=== PATIENT | female | born 1940 | race Caucasian/White ===

== ENCOUNTER 2017-08-15 13:51 | Inpatient (IN) | payer MEDICARE, OTHER ==
[2017-08-11 09:50] LABS: BASOPHILS % (AUTO) 0.6 % (0-1); EOSINOPHILS # (AUTO) 0.2 X10'3 (0-0.9); EOSINOPHILS % (AUTO) 4.7 % (0-6); HEMATOCRIT 38.1 % (35.0-45.0); LYMPHOCYTES # (AUTO) 1.2 X10'3 (1.1-4.8); LYMPHOCYTES % (AUTO) 36.9 % (21-51); MEAN CORPUSCULAR HGB CONC 34.1 % (33.0-36.5); MEAN CORPUSCULAR VOLUME 84.9 FL (78-98); MEAN PLATELET VOLUME 8.6 FL (7.4-10.4); MONOCYTES # (AUTO) 0.3 X10'3 (0-0.9); MONOCYTES % (AUTO) 9.1 % (2-12); NEUTROPHILS # (AUTO) 1.6 X10'3 (1.8-7.7); NEUTROPHILS % (AUTO) 48.7 % (42-75); PLATELET COUNT 177 X10'3 (140-440); RED BLOOD COUNT 4.49 X10'6 (4.20-5.60); RED CELL DISTRIBUTION WIDTH 14.8 % (11.5-14.5); WHITE BLOOD COUNT 3.2 X10'3 (4.5-11.0)
[2017-08-11 09:59] LABS: ALBUMIN 3.8 G/DL (3.4-5.0); ANION GAP 10 (8-16); BLOOD UREA NITROGEN 9 MG/DL (7-18); CALCIUM 8.8 MG/DL (8.5-10.1); CHLORIDE 104 MMOL/L (99-107); CREATININE 0.69 MG/DL (0.40-0.90); GLUCOSE 95 MG/DL (70-104); POTASSIUM 3.6 MMOL/L (3.5-5.1); SODIUM 140 MMOL/L (135-145); TOTAL CARBON DIOXIDE 25.6 MMOL/L (24-32); eGFR 82 ML/MIN
[2017-08-11 10:00] LABS: INR 1.9 INR; PARTIAL THROMBOPLASTIN TIME 35 SECONDS (22-32); PROTHROMBIN TIME 19.7 SECONDS (9.0-12.0)
[2017-08-15] VITALS (10 sets, daily range): BP systolic 118–156; BP diastolic 68–86
[~2017-08-15] VITALS: Ht 172.7 cm; Wt 69.3 kg
[~2017-08-15 13:51] MED LIST: ACET-2119 PO; ATOR10TA70 PO; ENOX40SY7 SUBCUT; LOSA1TAB41 PO; MONT10TA24 PO; OMEG-107 PO; PANT40TA4 PO; VERA180T PO; WARF-65 PO
[2017-08-15] MEDS ORDERED: LORazepam 0.5 MG tablet PO PRN (14:20)
[2017-08-15] MEDS ORDERED: diphenhydrAMINE 25mg capsule PO PRN (14:20)
[2017-08-15] MEDS ORDERED: normal saline 1000ml 1,000 ML IV SCH (14:20)
[2017-08-15] MEDS ORDERED: OMEG1CAP PO (14:30)
[2017-08-15 15:11] LABS: PROTHROMBIN TIME 10.6 SECONDS (9.0-12.0)
[2017-08-15] MEDS ORDERED: fentaNYL/PF 50MCG/1 ML 2ML syringe ONE (15:50)
[2017-08-15] MEDS ORDERED: LIDOcaine 1%/PF (10mg/ml) 5ml vial ONE (15:50)
[2017-08-15] MEDS ORDERED: midazolam 2 mg/2 ml injection ONE (15:50)
[2017-08-15] MEDS ORDERED: iohexol 350MG/ML 100ml bottle IV ONE (15:51)
[2017-08-15] MEDS ORDERED: ondansetron/PF 4mg/2ml inj ONE (16:20)
[2017-08-15] MEDS ORDERED: OXAZEpam 15mg capsule PO PRN (17:40)
[2017-08-15] MEDS ORDERED: HYDROcodone/acetaminophen 5mg/325mg tablet PO PRN (17:40)
[2017-08-15] MEDS ORDERED: ondansetron/PF 4mg/2ml inj IV PRN (17:40)
[2017-08-15] MEDS ORDERED: HYDROcodone/acetaminophen 10/325mg tab PO PRN (17:40)
[2017-08-15] MEDS ORDERED: proCHLORperazine 10 MG/2 ml inj IV PRN (17:40)
[2017-08-15] MEDS ORDERED: insulin regular, human inj. 100 UNITS in normal saline 100ml IV soln 100 ML IV SCH ×2 (17:50)
[2017-08-15] MEDS ORDERED: cefazolin/dext.iso 2gm/50ml 50 ML IV ONE (17:50)
[2017-08-15] MEDS ORDERED: montelukast 10mg tablet PO PRN (17:50)
[2017-08-15] MEDS ORDERED: dextrose 50%-water 50ml dispensing syringe IV PRN (17:50)
[2017-08-15] MEDS ORDERED: montelukast 10mg tablet PO SCH (17:50)
[2017-08-15] MEDS ORDERED: MESSAGE TO NURSING PO ONE ×3 (17:50)
[2017-08-15] MEDS ORDERED: pantoprazole 40mg Tablet.DR PO SCH ×2 (17:50→17:58)
[2017-08-15] MEDS: insulin Lispro (HumaLOG) vial - multi-dose SQ SCH (18:00)
[2017-08-15] MEDS ORDERED: mupirocin 2% ointment 22GM NS SCH (20:00)
[2017-08-15 20:29] LABS: HEMATOCRIT 35.6 % (35.0-45.0); HEMOGLOBIN 11.9 g/dl (12.0-16.0); MEAN CORPUSCULAR HEMOGLOBIN 28.6 PG (27.0-31.0); MEAN CORPUSCULAR HGB CONC 33.5 % (33.0-36.5); MEAN CORPUSCULAR VOLUME 85.3 FL (78-98); MEAN PLATELET VOLUME 8.7 FL (7.4-10.4); PLATELET COUNT 170 X10'3 (140-440); RED BLOOD COUNT 4.18 X10'6 (4.20-5.60); RED CELL DISTRIBUTION WIDTH 14.8 % (11.5-14.5); WHITE BLOOD COUNT 3.7 X10'3 (4.5-11.0)
[2017-08-15 20:41] LABS: ALBUMIN 3.5 G/DL (3.4-5.0); ANION GAP 9 (8-16); BLOOD UREA NITROGEN 8 MG/DL (7-18); BUN/CREATININE RATIO 12.5 (6.6-38.0); CALCIUM 8.6 MG/DL (8.5-10.1); CHLORIDE 106 MMOL/L (99-107); CREATININE 0.64 MG/DL (0.40-0.90); GLUCOSE 134 MG/DL (70-104); PARTIAL THROMBOPLASTIN TIME 27 SECONDS (22-32); POTASSIUM 3.5 MMOL/L (3.5-5.1); SODIUM 142 MMOL/L (135-145); TOTAL CARBON DIOXIDE 27.5 MMOL/L (24-32); eGFR 90 ML/MIN
[2017-08-15 20:46] LABS: HEMOGLOBIN A1C 5.9 % (4.5-6.2)
[2017-08-15] MEDS: verapamil SR 120mg (sust. release) tab PO SCH (21:26)
[2017-08-16 03:00] VITALS: BP 127/61
[2017-08-16 06:00] VITALS: BP 135/51
[2017-08-16] MEDS ORDERED: LOSARTAN PO SCH (08:00)
[2017-08-16] MEDS ORDERED: HYDROCHLOROTHIAZIDE PO SCH (08:00)
[2017-08-16] MEDS ORDERED: atorvastatin 10mg tablet PO SCH (08:00)
[2017-08-16] MEDS ORDERED: omega-3 acid ethyl esters 1GM capsule PO SCH ×2 (08:00)
[2017-08-16] MEDS ORDERED: losartan 50mg tablet PO SCH (08:00)
[2017-08-16] MEDS ORDERED: HYDROchlorothiazide 12.5mg capsule PO SCH (08:00)
[2017-08-16] MEDS ORDERED: [UNRECOGNIZED DRUG - OTHER] PO SCH (08:00)
[2017-08-16] MEDS: verapamil SR 120mg (sust. release) tab PO SCH ×2 (08:19→20:07)
[2017-08-16] MEDS: insulin Lispro (HumaLOG) vial - multi-dose SQ SCH ×2 (08:25→12:54)
[2017-08-16] MEDS ORDERED: MESSAGE TO NURSING PO ONE (10:00)
[2017-08-16 11:00] VITALS: BP 144/64
[2017-08-16 14:41] LABS: ABG BASE EXCESS 2.2 mmol/L (-2.0-3.0); ABG OXYGEN SATURATION 97.1 % (95-98); ABG PCO2 (T) 37.6 mmHg (32.0-45.0); ABG PH (T) 7.457 (7.350-7.450); ABG PO2 (T) 89.4 mmHg (83-108); FCOHb 0.1 % (0.5-1.5); FMetHb 0.1 % (0.3-1.12); FO2Hb 96.9 % (94-100); TOTAL HEMOGLOBIN 13.6 G/dl (12.0-16.0)
[2017-08-16 14:58] LABS: COLOR,URINE YELLOW (Yellow); GLUCOSE, URINE NEGATIVE (Neg); KETONES,URINE NEGATIVE (Neg); LEUKOCYTE ESTERASE ,URINE MODERATE (Neg); NITRITES, URINE NEGATIVE (Neg); OCCULT BLOOD,URINE SMALL (Neg); PH,URINE 6.5 (4.8-8.0); PROTEIN,URINE NEGATIVE (Neg); UA COLLECTION TYPE CLN CATCH MIDSTREAM; UROBILINOGEN,URINE 0.2 E.U/dL (0.2-1.0)
[2017-08-16 14:59] LABS: CLARITY,URINE Slightly Cloudy (Clear)
[2017-08-16 15:00] VITALS: BP 122/62
[2017-08-16 15:10] LABS: BACTERIA,URINE NONE SEEN /HPF (Neg); RBC,URINE 0-2 /HPF (0-2); SQUAMOUS EPITHELIAL CELL,UR MODERATE /LPF (FEW); WBC,URINE 0-4 /HPF (0-4)
[2017-08-16 17:05] LABS: ALBUMIN 3.9 G/DL (3.4-5.0); ANION GAP 9 (8-16); BLOOD UREA NITROGEN 12 MG/DL (7-18); BUN/CREATININE RATIO 18.5 (6.6-38.0); CALCIUM 8.8 MG/DL (8.5-10.1); CHLORIDE 104 MMOL/L (99-107); CREATININE 0.65 MG/DL (0.40-0.90); GLUCOSE 99 MG/DL (70-104); MAGNESIUM 2.1 MG/DL (1.5-2.4); POTASSIUM 3.9 MMOL/L (3.5-5.1); SODIUM 140 MMOL/L (135-145); TOTAL CARBON DIOXIDE 27.3 MMOL/L (24-32); eGFR 88 ML/MIN
[2017-08-16 19:00] VITALS: BP 148/65
[2017-08-16] MEDS ORDERED: ringers solution, lacted 1,000 ML IV ONE (19:15)
[2017-08-16 22:00] VITALS: BP 147/90
[2017-08-16] MEDS: mupirocin 2% ointment 22GM NS SCH (22:20)
[2017-08-17] VITALS (19 sets, daily range): BP systolic 114–164; BP diastolic 44–78
[2017-08-17 05:08] LABS: BASOPHILS % (AUTO) 0.7 % (0-1); EOSINOPHILS # (AUTO) 0.1 X10'3 (0-0.9); EOSINOPHILS % (AUTO) 3.2 % (0-6); HEMATOCRIT 37.7 % (35.0-45.0); HEMOGLOBIN 12.8 g/dl (12.0-16.0); LYMPHOCYTES # (AUTO) 1.3 X10'3 (1.1-4.8); LYMPHOCYTES % (AUTO) 28.3 % (21-51); MEAN CORPUSCULAR HGB CONC 33.9 % (33.0-36.5); MEAN CORPUSCULAR VOLUME 85.5 FL (78-98); MONOCYTES # (AUTO) 0.4 X10'3 (0-0.9); MONOCYTES % (AUTO) 8.7 % (2-12); NEUTROPHILS # (AUTO) 2.7 X10'3 (1.8-7.7); NEUTROPHILS % (AUTO) 59.1 % (42-75); PLATELET COUNT 195 X10'3 (140-440); RED BLOOD COUNT 4.41 X10'6 (4.20-5.60); RED CELL DISTRIBUTION WIDTH 14.5 % (11.5-14.5); WHITE BLOOD COUNT 4.6 X10'3 (4.5-11.0)
[2017-08-17 05:15] LABS: PARTIAL THROMBOPLASTIN TIME 26 SECONDS (22-32); PROTHROMBIN TIME 10.5 SECONDS (9.0-12.0)
[2017-08-17 05:20] LABS: ALANINE AMINOTRANSFERASE 36 U/L (12-78); ALBUMIN 3.7 G/DL (3.4-5.0); ALBUMIN/GLOBULIN RATIO 1.1 (1.1-1.5); ALKALINE PHOSPHATASE 56 IU/L (46-116); ANION GAP 12 (8-16); ASPARTATE AMINO TRANSFERASE 23 U/L (10-37); BILIRUBIN,TOTAL 0.9 MG/DL (0.1-1.0); BLOOD UREA NITROGEN 9 MG/DL (7-18); BUN/CREATININE RATIO 12.3 (6.6-38.0); CALCIUM 8.9 MG/DL (8.5-10.1); CHLORIDE 102 MMOL/L (99-107); CREATININE 0.73 MG/DL (0.40-0.90); GLUCOSE 106 MG/DL (70-104); POTASSIUM 3.6 MMOL/L (3.5-5.1); SODIUM 140 MMOL/L (135-145); TOTAL CARBON DIOXIDE 26.4 MMOL/L (24-32); eGFR 77 ML/MIN
[2017-08-17] MEDS: mupirocin 2% ointment 22GM NS SCH ×2 (05:33→22:26)
[2017-08-17] MEDS ORDERED: famotidine 20mg tablet PO ONE (06:00)
[2017-08-17] MEDS ORDERED: ceFAZolin inj. 2,000 MG in normal saline 100ml IV soln 100 ML IV ONE (06:00)
[2017-08-17] MEDS ORDERED: vancomycin/NS 1 GM ADD-VANTAGE 250 ML IV ONE (06:00)
[2017-08-17] MEDS ORDERED: protamine sulf. 10mg/ml inj. IV ONE (06:05)
[2017-08-17] MEDS ORDERED: sevoflurane 250ml liquid IH ONE (06:05)
[2017-08-17] MEDS ORDERED: MIDAZolam 1mg/ml 10ml vial ONE (06:14)
[2017-08-17] MEDS ORDERED: SUFENTANIL CITRATE 50 MCG/ML 2ml ampule IV ONE (06:15)
[2017-08-17] MEDS ORDERED: propofol inj 20 ML IV ONE (06:17)
[2017-08-17] MEDS ORDERED: pancuronium br 1mg/ml inj IV ONE (06:17)
[2017-08-17] MEDS ORDERED: LIDOcaine 2% (20mg/ml) 5ml vial ONE (06:18)
[2017-08-17] MEDS ORDERED: NORMAL SALINE IV ONE (07:05)
[2017-08-17] MEDS ORDERED: TRANEXAMIC ACID IV ONE (07:05)
[2017-08-17] MEDS ORDERED: methylPREDNISolone sod succ 1000mg vial ONE ×2 (07:27→08:00)
[2017-08-17 07:51] LABS: ABG BASE EXCESS 3.9 mmol/L (-2.0-3.0); ABG HCO3 30.5 mmol/L (22.0-26.0); ABG OXYGEN SATURATION 99.1 % (95-98); ABG PCO2 57.9 mmHg (35.0-45.0); ABG PH 7.339 (7.350-7.450); ABG PO2 252.9 mmHg (60.0-100.0); CL (ABG) 104 mmol/L (99-107); FCOHb 0.1 % (0.5-1.5); FMetHb 0.2 % (0.3-1.12); FO2Hb 98.8 % (94-100); GLUCOSE (ABG) 93 mg/dl (70-105); IONIZED CA (ABG) 1.04 mmol/L (1.03-1.32); K (ABG) 3.9 mmol/L (3.3-5.1); NA (ABG) 135 mmol/L (135-145)
[2017-08-17 08:00] LABS: ABG BASE EXCESS VENOUS 3.4 mmol/L; ABG HCO3 VENOUS 28.8 mmol/L; ABG PCO2 VENOUS 48.2 mmHg; ABG PO2 VENOUS 64.9 mmHg; CL (ABG) 104 mmol/L (99-107); FMetHb VENOUS 0.2 %; FO2Hb VENOUS 90.8 %; GLUCOSE (ABG) 97 mg/dl (70-105); IONIZED CA (ABG) 1.03 mmol/L (1.03-1.32); K (ABG) 4.1 mmol/L (3.3-5.1); NA (ABG) 135 mmol/L (135-145); TOTAL HEMOGLOBIN 9.4 G/dl (12.0-16.0)
[2017-08-17] MEDS ORDERED: magnesium 1 GM/2 ML inj ONE (08:00)
[2017-08-17] MEDS ORDERED: phenylephrine 10mg/ml inj IV ONE (08:00)
[2017-08-17] MEDS ORDERED: potassium Cl 2 mEq/ml inj IV ONE (08:00)
[2017-08-17] MEDS ORDERED: albumin (human) 25% 100 ML IV solution IV ONE (08:00)
[2017-08-17] MEDS ORDERED: sodium bicarbonate (8.4%) 1 mEq/ml syringe ONE (08:00)
[2017-08-17] MEDS ORDERED: calcium chloride 100 MG/1 ML inj IV ONE (08:00)
[2017-08-17] MEDS ORDERED: LIDOcaine 2% (20 mg/ml) 5ml cardiac syringe ONE (08:00)
[2017-08-17] MEDS ORDERED: heparin 10,000 units/1 ML INJ ONE (08:00)
[2017-08-17 08:51] LABS: ABG BASE EXCESS VENOUS 0.6 mmol/L; ABG HCO3 VENOUS 25.5 mmol/L; ABG PCO2 VENOUS 42.1 mmHg; ABG PO2 VENOUS 49.2 mmHg; CL (ABG) 104 mmol/L (99-107); FCOHb VENOUS 0.5 %; FHHb VENOUS 14.5 %; FMetHb VENOUS 0.1 %; FO2Hb VENOUS 84.9 %; GLUCOSE (ABG) 88 mg/dl (70-105); IONIZED CA (ABG) 1.23 mmol/L (1.03-1.32); K (ABG) 3.9 mmol/L (3.3-5.1); NA (ABG) 133 mmol/L (135-145); TOTAL HEMOGLOBIN 8.5 G/dl (12.0-16.0)
[2017-08-17] MEDS ORDERED: DOPamine 400mg/D5W 250ml 250 ML IV PRN (09:18)
[2017-08-17] MEDS ORDERED: nitroGLYCERIN-Tridil 50MG/D5W 250 ML IV PRN (09:18)
[2017-08-17] MEDS ORDERED: metoclopramide 5 mg/ml inj IV PRN (09:20)
[2017-08-17] MEDS ORDERED: magnesium 4gm in 100ml NS 100 ML IV PRN (09:20)
[2017-08-17] MEDS ORDERED: sodium phosphate inj. 15 MMOL in dextrose 5%-water 150 ML IV PRN (09:20)
[2017-08-17] MEDS ORDERED: normal saline 250ml IV soln 250 ML IV PRN (09:20)
[2017-08-17] MEDS ORDERED: dextrose 50%-water 50ml dispensing syringe IV PRN (09:20)
[2017-08-17] MEDS ORDERED: acetaminophen 325mg tablet PO PRN (09:20)
[2017-08-17] MEDS ORDERED: Neutra Phos packet PO PRN (09:20)
[2017-08-17] MEDS ORDERED: magnesium 2GM in 50ml NS 50 ML IV PRN (09:20)
[2017-08-17] MEDS ORDERED: potassium Cl 20mEq/100mL bag 100 ML IV PRN (09:20)
[2017-08-17] MEDS ORDERED: sodium phosphate inj. 30 MMOL in dextrose 5%-water 250 ML IV PRN (09:20)
[2017-08-17] MEDS ORDERED: magnesium hydroxide 30ml (MOM) UD suspension PO PRN (09:20)
[2017-08-17] MEDS ORDERED: insulin regular, human inj. 100 UNITS in normal saline 100ml IV soln 100 ML IV SCH ×2 (09:20)
[2017-08-17] MEDS ORDERED: morphine 4 MG/ML inj SYRINge IV PRN (09:20)
[2017-08-17] MEDS ORDERED: HYDROcodone/acetaminophen 10/325mg tab PO PRN (09:20)
[2017-08-17 09:40] LABS: ABG BASE EXCESS 0.1 mmol/L (-2.0-3.0); ABG HCO3 24.6 mmol/L (22.0-26.0); ABG OXYGEN SATURATION 98.6 % (95-98); ABG PCO2 (T) 35.9 mmHg (32.0-45.0); ABG PH (T) 7.445 (7.350-7.450); ABG PO2 (T) 156.2 mmHg (83-108); FCOHb 0.3 % (0.5-1.5); FMetHb 0.3 % (0.3-1.12); MINUTE VOLUME 6 L/min; PATIENT TEMPERATURE 35.1; PEEP 5 cm H2O; RESPIRATORY RATE 12 b/min; RESPIRATORY RATE (OBSERVED) 12 b/min; TIDAL VOLUME 550 mL; TOTAL HEMOGLOBIN 10.8 G/dl (12.0-16.0)
[2017-08-17 09:50] LABS: BASOPHILS % (AUTO) 0.3 % (0-1); EOSINOPHILS # (AUTO) 0.1 X10'3 (0-0.9); EOSINOPHILS % (AUTO) 2.1 % (0-6); HEMATOCRIT 29.5 % (35.0-45.0); LYMPHOCYTES # (AUTO) 0.7 X10'3 (1.1-4.8); LYMPHOCYTES % (AUTO) 13.1 % (21-51); MEAN CORPUSCULAR HEMOGLOBIN 29.2 PG (27.0-31.0); MEAN CORPUSCULAR HGB CONC 33.9 % (33.0-36.5); MEAN CORPUSCULAR VOLUME 86.1 FL (78-98); MONOCYTES # (AUTO) 0.3 X10'3 (0-0.9); MONOCYTES % (AUTO) 5.7 % (2-12); NEUTROPHILS # (AUTO) 4.1 X10'3 (1.8-7.7); NEUTROPHILS % (AUTO) 78.8 % (42-75); PLATELET COUNT 119 X10'3 (140-440); RED BLOOD COUNT 3.43 X10'6 (4.20-5.60); RED CELL DISTRIBUTION WIDTH 14.4 % (11.5-14.5); WHITE BLOOD COUNT 5.2 X10'3 (4.5-11.0)
[2017-08-17 09:56] LABS: ACTIVATED CLOTTING TIME 569 SEC (101-148)
[2017-08-17 09:56] LABS: ACTIVATED CLOTTING TIME 795 SEC (101-148)
[2017-08-17 09:56] LABS: ACTIVATED CLOTTING TIME 730 SEC (101-148)
[2017-08-17 09:56] LABS: ACTIVATED CLOTTING TIME 102 SEC (101-148)
[2017-08-17 10:00] LABS: INR 1.2 INR; PARTIAL THROMBOPLASTIN TIME 37 SECONDS (22-32); PROTHROMBIN TIME 12.7 SECONDS (9.0-12.0)
[2017-08-17 10:04] LABS: ALANINE AMINOTRANSFERASE 28 U/L (12-78); ALBUMIN 3.1 G/DL (3.4-5.0); ALBUMIN/GLOBULIN RATIO 1.6 (1.1-1.5); ALKALINE PHOSPHATASE 38 IU/L (46-116); ANION GAP 12 (8-16); ASPARTATE AMINO TRANSFERASE 29 U/L (10-37); BLOOD UREA NITROGEN 9 MG/DL (7-18); CALCIUM 8.3 MG/DL (8.5-10.1); CHLORIDE 106 MMOL/L (99-107); GLUCOSE 120 MG/DL (70-104); MAGNESIUM 3.8 MG/DL (1.5-2.4); PHOSPHORUS 3.1 MG/DL (2.3-4.5); POTASSIUM 4.1 MMOL/L (3.5-5.1); SODIUM 141 MMOL/L (135-145); TOTAL CARBON DIOXIDE 23.5 MMOL/L (24-32); eGFR > 90 ML/MIN
[2017-08-17] MEDS: albumin (Human) 5% 250ml 250 ML IV PRN ×2 (10:42→10:43)
[2017-08-17] MEDS: verapamil SR 120mg (sust. release) tab PO SCH ×2 (10:45→20:00)
[2017-08-17] MEDS: insulin Lispro (HumaLOG) vial - multi-dose SQ SCH ×3 (10:49→18:00)
[2017-08-17] MEDS: sodium chloride 0.45% 1,000 ML IV SCH (10:50)
[2017-08-17] MEDS: insulin regular, human inj. 100 UNITS in normal saline 100ml IV soln 100 ML IV SCH ×12 (10:51→22:28)
[2017-08-17] MEDS: potassium Cl 20mEq/100mL bag 100 ML IV PRN ×5 (11:12→18:20)
[2017-08-17] MEDS: morphine 4 MG/ML inj SYRINge IV PRN ×3 (12:58→15:12)
[2017-08-17] MEDS: niCARDipine/sod cl 20mg/200ml 200 ML IV PRN ×3 (13:06→18:54)
[2017-08-17 13:34] LABS: MAGNESIUM 2.7 MG/DL (1.5-2.4); PHOSPHORUS 2.9 MG/DL (2.3-4.5); POTASSIUM 3.1 MMOL/L (3.5-5.1)
[2017-08-17 14:15] LABS: ABG HCO3 20.6 mmol/L (22.0-26.0); ABG OXYGEN SATURATION 97.5 % (95-98); ABG PCO2 (T) 36.1 mmHg (32.0-45.0); ABG PH (T) 7.375 (7.350-7.450); ABG PO2 (T) 105.5 mmHg (83-108); FCOHb 0.3 % (0.5-1.5); FMetHb 0.3 % (0.3-1.12); FO2Hb 96.9 % (94-100); MINUTE VOLUME 6 L/min; PEEP 5 cm H2O; RESPIRATORY RATE (OBSERVED) 13 b/min; TOTAL HEMOGLOBIN 11.6 G/dl (12.0-16.0)
[2017-08-17] MEDS: ceFAZolin 1GM/D5W- ADD-VANTAGE 50 ML IV SCH (16:17)
[2017-08-17] MEDS: ondansetron/PF 4mg/2ml inj IV PRN (16:26)
[2017-08-17] MEDS ORDERED: ketorolac tromethamine 15mg/ml inj. IV ONE (16:55)
[2017-08-17] MEDS: ketorolac tromethamine 15mg/ml inj. IV SCH ×2 (16:57→20:00)
[2017-08-17 17:24] LABS: BASOPHILS % (AUTO) 0 % (0-1); EOSINOPHILS # (AUTO) 0.1 X10'3 (0-0.9); EOSINOPHILS % (AUTO) 1.2 % (0-6); HEMATOCRIT 33.1 % (35.0-45.0); HEMOGLOBIN 11.2 g/dl (12.0-16.0); LYMPHOCYTES # (AUTO) 0.4 X10'3 (1.1-4.8); LYMPHOCYTES % (AUTO) 4.3 % (21-51); MEAN CORPUSCULAR HEMOGLOBIN 29.1 PG (27.0-31.0); MEAN CORPUSCULAR HGB CONC 33.9 % (33.0-36.5); MEAN CORPUSCULAR VOLUME 85.7 FL (78-98); MEAN PLATELET VOLUME 8.9 FL (7.4-10.4); MONOCYTES # (AUTO) 0.2 X10'3 (0-0.9); MONOCYTES % (AUTO) 2.2 % (2-12); NEUTROPHILS # (AUTO) 8.3 X10'3 (1.8-7.7); NEUTROPHILS % (AUTO) 92.3 % (42-75); PLATELET COUNT 135 X10'3 (140-440); RED BLOOD COUNT 3.87 X10'6 (4.20-5.60); RED CELL DISTRIBUTION WIDTH 14.6 % (11.5-14.5)
[2017-08-17 17:33] LABS: ALBUMIN 4.2 G/DL (3.4-5.0); ANION GAP 14 (8-16); BLOOD UREA NITROGEN 11 MG/DL (7-18); BUN/CREATININE RATIO 13.3 (6.6-38.0); CALCIUM 7.9 MG/DL (8.5-10.1); CHLORIDE 107 MMOL/L (99-107); CREATININE 0.83 MG/DL (0.40-0.90); GLUCOSE 155 MG/DL (70-104); POTASSIUM 4.3 MMOL/L (3.5-5.1); SODIUM 142 MMOL/L (135-145); TOTAL CARBON DIOXIDE 20.6 MMOL/L (24-32); eGFR 66 ML/MIN
[2017-08-17] MEDS ORDERED: proCHLORperazine 10 MG/2 ml inj IV PRN (18:15)
[2017-08-17] MEDS ORDERED: oxyCODONE IR 5mg (immed. release) tablet PO PRN (18:15)
[2017-08-17] MEDS ORDERED: midazolam 2 mg/2 ml injection IV ONE (19:15)
[2017-08-17] MEDS: lactobacillus rhamnosus 10,000 MMU CELLS/CAPSULE PO SCH (20:00)
[2017-08-17] MEDS: docusate sod 100mg capsule PO SCH (20:00)
[2017-08-17] MEDS: vancomycin/NS 1 GM ADD-VANTAGE 250 ML IV SCH (20:26)
[2017-08-17] MEDS: HYDROcodone/acetaminophen 10/325mg tab PO PRN (21:23)
[2017-08-18] VITALS (21 sets, daily range): BP systolic 90–152; BP diastolic 48–74
[2017-08-18] MEDS: ceFAZolin 1GM/D5W- ADD-VANTAGE 50 ML IV SCH ×3 (00:48→15:39)
[2017-08-18] MEDS: ketorolac tromethamine 15mg/ml inj. IV SCH ×3 (02:09→14:02)
[2017-08-18 02:12] LABS: BASOPHILS % (AUTO) 0 % (0-1); EOSINOPHILS # (AUTO) 0.1 X10'3 (0-0.9); EOSINOPHILS % (AUTO) 1.2 % (0-6); HEMATOCRIT 29.2 % (35.0-45.0); HEMOGLOBIN 9.8 g/dl (12.0-16.0); LYMPHOCYTES # (AUTO) 0.6 X10'3 (1.1-4.8); LYMPHOCYTES % (AUTO) 6.3 % (21-51); MEAN CORPUSCULAR HEMOGLOBIN 29.1 PG (27.0-31.0); MEAN CORPUSCULAR HGB CONC 33.6 % (33.0-36.5); MEAN CORPUSCULAR VOLUME 86.4 FL (78-98); MEAN PLATELET VOLUME 9.3 FL (7.4-10.4); MONOCYTES # (AUTO) 0.4 X10'3 (0-0.9); MONOCYTES % (AUTO) 4.1 % (2-12); NEUTROPHILS # (AUTO) 8.8 X10'3 (1.8-7.7); NEUTROPHILS % (AUTO) 88.4 % (42-75); PLATELET COUNT 109 X10'3 (140-440); RED BLOOD COUNT 3.38 X10'6 (4.20-5.60); RED CELL DISTRIBUTION WIDTH 14.7 % (11.5-14.5); WHITE BLOOD COUNT 9.9 X10'3 (4.5-11.0)
[2017-08-18 02:16] LABS: INR 1.1 INR; PARTIAL THROMBOPLASTIN TIME 26 SECONDS (22-32); PROTHROMBIN TIME 10.9 SECONDS (9.0-12.0)
[2017-08-18 02:19] LABS: ALANINE AMINOTRANSFERASE 45 U/L (12-78); ALBUMIN 3.6 G/DL (3.4-5.0); ALBUMIN/GLOBULIN RATIO 1.7 (1.1-1.5); ALKALINE PHOSPHATASE 46 IU/L (46-116); ANION GAP 9 (8-16); ASPARTATE AMINO TRANSFERASE 49 U/L (10-37); BLOOD UREA NITROGEN 13 MG/DL (7-18); BUN/CREATININE RATIO 19.1 (6.6-38.0); CALCIUM 8.1 MG/DL (8.5-10.1); CHLORIDE 107 MMOL/L (99-107); CREATININE 0.68 MG/DL (0.40-0.90); GLUCOSE 108 MG/DL (70-104); MAGNESIUM 2.4 MG/DL (1.5-2.4); PHOSPHORUS 3.2 MG/DL (2.3-4.5); POTASSIUM 4.8 MMOL/L (3.5-5.1); SODIUM 140 MMOL/L (135-145); TOTAL CARBON DIOXIDE 24.3 MMOL/L (24-32); TOTAL PROTEIN 5.7 G/DL (6.4-8.2); eGFR 84 ML/MIN
[2017-08-18] MEDS: HYDROcodone/acetaminophen 10/325mg tab PO PRN ×4 (02:19→21:36)
[2017-08-18] MEDS: insulin regular, human inj. 100 UNITS in normal saline 100ml IV soln 100 ML IV SCH ×6 (03:32→05:59)
[2017-08-18] MEDS: niCARDipine/sod cl 20mg/200ml 200 ML IV PRN (04:17)
[2017-08-18] MEDS: atorvastatin 10mg tablet PO SCH (07:56)
[2017-08-18] MEDS: lactobacillus rhamnosus 10,000 MMU CELLS/CAPSULE PO SCH ×2 (07:56→19:56)
[2017-08-18] MEDS: vancomycin/NS 1 GM ADD-VANTAGE 250 ML IV SCH ×2 (07:56→19:56)
[2017-08-18] MEDS: pantoprazole 40mg Tablet.DR PO SCH (07:57)
[2017-08-18] MEDS: docusate sod 100mg capsule PO SCH ×2 (07:57→19:56)
[2017-08-18] MEDS: verapamil SR 120mg (sust. release) tab PO SCH (07:58)
[2017-08-18] MEDS: mupirocin 2% ointment 22GM NS SCH ×2 (07:58→20:48)
[2017-08-18] MEDS ORDERED: metoprolol tartrate 12.5mg (1/2 tablet) PO SCH (08:00)
[2017-08-18] MEDS: insulin Lispro (HumaLOG) vial - multi-dose SQ SCH ×3 (09:20→18:26)
[2017-08-18] MEDS ORDERED: MESSAGE TO PHARMACY PO ONE (12:40)
[2017-08-18] MEDS ORDERED: insulin Lispro (HumaLOG) vial - multi-dose SQ SCH (12:40)
[2017-08-18] MEDS: [UNRECOGNIZED DRUG - OTHER] EACHEYE SCH (15:39)
[2017-08-18] MEDS: BRIMONIDINE EACHEYE SCH (15:39)
[2017-08-18] MEDS ORDERED: brimonidine 0.2% 5 ML ophthalmic drops EACHEYE SCH (16:00)
[2017-08-18] MEDS: insulin glargine (Lantus) pen - multi-dose SQ SCH (20:50)
[2017-08-18] MEDS: amiodarone inj. 450 MG in dextrose 5%-water 250 ML IV SCH (23:00)
[2017-08-19] VITALS (22 sets, daily range): BP systolic 100–164; BP diastolic 49–92
[2017-08-19] MEDS: BRIMONIDINE EACHEYE SCH ×2 (00:02→08:00)
[2017-08-19] MEDS: [UNRECOGNIZED DRUG - OTHER] EACHEYE SCH ×2 (00:02→08:00)
[2017-08-19] MEDS: ceFAZolin 1GM/D5W- ADD-VANTAGE 50 ML IV SCH (00:02)
[2017-08-19 04:18] LABS: BASOPHILS % (AUTO) 0.1 % (0-1); EOSINOPHILS # (AUTO) 0.1 X10'3 (0-0.9); EOSINOPHILS % (AUTO) 0.7 % (0-6); HEMATOCRIT 29.2 % (35.0-45.0); HEMOGLOBIN 9.9 g/dl (12.0-16.0); LYMPHOCYTES # (AUTO) 0.8 X10'3 (1.1-4.8); LYMPHOCYTES % (AUTO) 7.7 % (21-51); MEAN CORPUSCULAR HEMOGLOBIN 29.1 PG (27.0-31.0); MEAN CORPUSCULAR HGB CONC 33.8 % (33.0-36.5); MEAN CORPUSCULAR VOLUME 86.3 FL (78-98); MEAN PLATELET VOLUME 9.9 FL (7.4-10.4); MONOCYTES # (AUTO) 0.7 X10'3 (0-0.9); MONOCYTES % (AUTO) 6.5 % (2-12); PLATELET COUNT 118 X10'3 (140-440); RED BLOOD COUNT 3.39 X10'6 (4.20-5.60); RED CELL DISTRIBUTION WIDTH 15.1 % (11.5-14.5); WHITE BLOOD COUNT 10.6 X10'3 (4.5-11.0)
[2017-08-19] MEDS: HYDROcodone/acetaminophen 10/325mg tab PO PRN ×4 (04:18→20:04)
[2017-08-19 04:33] LABS: ALBUMIN 3.4 G/DL (3.4-5.0); ANION GAP 8 (8-16); BLOOD UREA NITROGEN 17 MG/DL (7-18); CHLORIDE 105 MMOL/L (99-107); CREATININE 0.63 MG/DL (0.40-0.90); GLUCOSE 121 MG/DL (70-104); MAGNESIUM 2.5 MG/DL (1.5-2.4); PHOSPHORUS 3.6 MG/DL (2.3-4.5); POTASSIUM 4.9 MMOL/L (3.5-5.1); SODIUM 137 MMOL/L (135-145); TOTAL CARBON DIOXIDE 24.2 MMOL/L (24-32); eGFR > 90 ML/MIN
[2017-08-19] MEDS: insulin regular, human inj. 100 UNITS in normal saline 100ml IV soln 100 ML IV SCH ×2 (06:00)
[2017-08-19] MEDS: pantoprazole 40mg Tablet.DR PO SCH (07:33)
[2017-08-19] MEDS: sennosides 8.6mg tablet PO SCH (07:33)
[2017-08-19] MEDS: atorvastatin 10mg tablet PO SCH (07:33)
[2017-08-19] MEDS: lactobacillus rhamnosus 10,000 MMU CELLS/CAPSULE PO SCH ×2 (07:33→20:04)
[2017-08-19] MEDS: docusate sod 100mg capsule PO SCH ×2 (07:33→20:04)
[2017-08-19] MEDS ORDERED: DEXTROSE 5% IV ONE (08:00)
[2017-08-19] MEDS: mupirocin 2% ointment 22GM NS SCH (08:00)
[2017-08-19] MEDS ORDERED: AMIODARONE IV ONE (08:00)
[2017-08-19] MEDS ORDERED: WATER IV ONE (08:00)
[2017-08-19] MEDS ORDERED: amiodarone 150mg/dext, iso-os 100 ML IV ONE (08:35)
[2017-08-19] MEDS: insulin Lispro (HumaLOG) vial - multi-dose SQ SCH ×3 (09:00→18:00)
[2017-08-19] MEDS: amiodarone inj. 450 MG in dextrose 5%-water 250 ML IV SCH (09:16)
[2017-08-19] MEDS: sodium chloride 0.45% 1,000 ML IV SCH (09:18)
[2017-08-19] MEDS ORDERED: magnesium citrate 296ml oral solution PO ONE (09:30)
[2017-08-19] MEDS: NUT.TX.GLUC.INTOLER,LAC-FR,REG (BOOST GLUCOSE CONTROL) 237 ML PO SCH ×2 (13:00→16:51)
[2017-08-19] MEDS: ondansetron/PF 4mg/2ml inj IV PRN (20:04)
[2017-08-19] MEDS: insulin glargine (Lantus) pen - multi-dose SQ SCH (21:00)
[2017-08-20] VITALS (23 sets, daily range): BP systolic 98–152; BP diastolic 56–100
[2017-08-20] MEDS: HYDROcodone/acetaminophen 10/325mg tab PO PRN ×5 (01:45→16:44)
[2017-08-20] MEDS: ondansetron/PF 4mg/2ml inj IV PRN (01:45)
[2017-08-20 04:31] LABS: BASOPHILS % (AUTO) 0.2 % (0-1); EOSINOPHILS # (AUTO) 0.1 X10'3 (0-0.9); EOSINOPHILS % (AUTO) 0.7 % (0-6); HEMATOCRIT 31.1 % (35.0-45.0); HEMOGLOBIN 10.6 g/dl (12.0-16.0); LYMPHOCYTES # (AUTO) 1.2 X10'3 (1.1-4.8); LYMPHOCYTES % (AUTO) 16.4 % (21-51); MEAN CORPUSCULAR HEMOGLOBIN 29.2 PG (27.0-31.0); MEAN CORPUSCULAR HGB CONC 33.9 % (33.0-36.5); MEAN CORPUSCULAR VOLUME 86.1 FL (78-98); MEAN PLATELET VOLUME 9.6 FL (7.4-10.4); MONOCYTES # (AUTO) 0.7 X10'3 (0-0.9); MONOCYTES % (AUTO) 9.8 % (2-12); NEUTROPHILS # (AUTO) 5.4 X10'3 (1.8-7.7); NEUTROPHILS % (AUTO) 72.9 % (42-75); PLATELET COUNT 124 X10'3 (140-440); RED BLOOD COUNT 3.62 X10'6 (4.20-5.60); RED CELL DISTRIBUTION WIDTH 15.3 % (11.5-14.5); WHITE BLOOD COUNT 7.4 X10'3 (4.5-11.0)
[2017-08-20 04:46] LABS: ALBUMIN 3.3 G/DL (3.4-5.0); ANION GAP 7 (8-16); BLOOD UREA NITROGEN 10 MG/DL (7-18); BUN/CREATININE RATIO 17.2 (6.6-38.0); CALCIUM 8.3 MG/DL (8.5-10.1); CHLORIDE 103 MMOL/L (99-107); CREATININE 0.58 MG/DL (0.40-0.90); GLUCOSE 110 MG/DL (70-104); PHOSPHORUS 3.1 MG/DL (2.3-4.5); POTASSIUM 4.1 MMOL/L (3.5-5.1); SODIUM 139 MMOL/L (135-145); eGFR > 90 ML/MIN
[2017-08-20] MEDS: insulin regular, human inj. 100 UNITS in normal saline 100ml IV soln 100 ML IV SCH ×2 (06:00)
[2017-08-20] MEDS: [UNRECOGNIZED DRUG - OTHER] EACHEYE SCH ×3 (08:00→16:43)
[2017-08-20] MEDS: BRIMONIDINE EACHEYE SCH ×3 (08:00→16:43)
[2017-08-20] MEDS: atorvastatin 10mg tablet PO SCH (08:13)
[2017-08-20] MEDS: lactobacillus rhamnosus 10,000 MMU CELLS/CAPSULE PO SCH (08:13)
[2017-08-20] MEDS: pantoprazole 40mg Tablet.DR PO SCH (08:13)
[2017-08-20] MEDS: docusate sod 100mg capsule PO SCH ×2 (08:13→19:40)
[2017-08-20] MEDS: sennosides 8.6mg tablet PO SCH (08:13)
[2017-08-20] MEDS ORDERED: magnesium citrate 296ml oral solution PO ONE (08:30)
[2017-08-20] MEDS: verapamil SR 120mg (sust. release) tab PO SCH ×2 (10:37→19:40)
[2017-08-20] MEDS: NUT.TX.GLUC.INTOLER,LAC-FR,REG (BOOST GLUCOSE CONTROL) 237 ML PO SCH ×3 (13:00→20:00)
[2017-08-20] MEDS: sodium chloride 0.45% 1,000 ML IV SCH (15:17)
[2017-08-20] MEDS: potassium Cl 20mEq/100mL bag 100 ML IV PRN (16:42)
[2017-08-21] VITALS (16 sets, daily range): BP systolic 94–135; BP diastolic 50–95
[2017-08-21] MEDS: HYDROcodone/acetaminophen 10/325mg tab PO PRN ×3 (00:25→14:35)
[2017-08-21] MEDS: [UNRECOGNIZED DRUG - OTHER] EACHEYE SCH ×3 (00:26→16:53)
[2017-08-21] MEDS: BRIMONIDINE EACHEYE SCH ×3 (00:26→16:53)
[2017-08-21] MEDS: sodium chloride 0.45% 1,000 ML IV SCH (00:31)
[2017-08-21 06:01] LABS: BASOPHILS % (AUTO) 0.3 % (0-1); EOSINOPHILS # (AUTO) 0.1 X10'3 (0-0.9); EOSINOPHILS % (AUTO) 1.9 % (0-6); HEMATOCRIT 29.4 % (35.0-45.0); HEMOGLOBIN 9.9 g/dl (12.0-16.0); LYMPHOCYTES # (AUTO) 1.2 X10'3 (1.1-4.8); LYMPHOCYTES % (AUTO) 20.6 % (21-51); MEAN CORPUSCULAR HEMOGLOBIN 28.9 PG (27.0-31.0); MEAN CORPUSCULAR HGB CONC 33.6 % (33.0-36.5); MEAN CORPUSCULAR VOLUME 86.1 FL (78-98); MEAN PLATELET VOLUME 9.7 FL (7.4-10.4); MONOCYTES # (AUTO) 0.6 X10'3 (0-0.9); MONOCYTES % (AUTO) 9.2 % (2-12); NEUTROPHILS # (AUTO) 4.1 X10'3 (1.8-7.7); PLATELET COUNT 131 X10'3 (140-440); RED BLOOD COUNT 3.41 X10'6 (4.20-5.60); RED CELL DISTRIBUTION WIDTH 15.2 % (11.5-14.5); WHITE BLOOD COUNT 6.1 X10'3 (4.5-11.0)
[2017-08-21 06:14] LABS: ALBUMIN 2.9 G/DL (3.4-5.0); ANION GAP 7 (8-16); BLOOD UREA NITROGEN 11 MG/DL (7-18); BUN/CREATININE RATIO 18.3 (6.6-38.0); CALCIUM 8.3 MG/DL (8.5-10.1); CHLORIDE 103 MMOL/L (99-107); GLUCOSE 100 MG/DL (70-104); MAGNESIUM 2.4 MG/DL (1.5-2.4); PHOSPHORUS 3.9 MG/DL (2.3-4.5); POTASSIUM 4.4 MMOL/L (3.5-5.1); SODIUM 139 MMOL/L (135-145); TOTAL CARBON DIOXIDE 29.1 MMOL/L (24-32); eGFR > 90 ML/MIN
[2017-08-21] MEDS: sennosides 8.6mg tablet PO SCH ×2 (07:46→20:01)
[2017-08-21] MEDS: atorvastatin 10mg tablet PO SCH (07:46)
[2017-08-21] MEDS: pantoprazole 40mg Tablet.DR PO SCH (07:46)
[2017-08-21] MEDS: verapamil SR 120mg (sust. release) tab PO SCH ×2 (07:46→19:55)
[2017-08-21] MEDS: docusate sod 100mg capsule PO SCH ×2 (07:46→19:56)
[2017-08-21] MEDS: NUT.TX.GLUC.INTOLER,LAC-FR,REG (BOOST GLUCOSE CONTROL) 237 ML PO SCH ×3 (08:59→18:21)
[2017-08-21] MEDS ORDERED: magnesium citrate 296ml oral solution PO ONE (09:25)
[2017-08-21] MEDS ORDERED: amiodarone 150mg/dext, iso-os 100 ML IV ONE (10:10)
[2017-08-21] MEDS: HYDROcodone/acetaminophen 5mg/325mg tablet PO PRN (19:56)
[2017-08-22] VITALS (12 sets, daily range): BP systolic 84–159; BP diastolic 50–85
[2017-08-22] MEDS: HYDROcodone/acetaminophen 5mg/325mg tablet PO PRN (02:49)
[2017-08-22 06:31] LABS: MAGNESIUM 2.2 MG/DL (1.5-2.4); PHOSPHORUS 4.3 MG/DL (2.3-4.5); POTASSIUM 4.4 MMOL/L (3.5-5.1)
[2017-08-22] MEDS: atorvastatin 10mg tablet PO SCH (07:44)
[2017-08-22] MEDS: [UNRECOGNIZED DRUG - OTHER] EACHEYE SCH ×3 (07:44→16:27)
[2017-08-22] MEDS: pantoprazole 40mg Tablet.DR PO SCH (07:44)
[2017-08-22] MEDS: docusate sod 100mg capsule PO SCH ×2 (07:44→20:43)
[2017-08-22] MEDS: BRIMONIDINE EACHEYE SCH ×3 (07:44→16:27)
[2017-08-22] MEDS: verapamil SR 120mg (sust. release) tab PO SCH ×2 (07:49→20:43)
[2017-08-22] MEDS: NUT.TX.GLUC.INTOLER,LAC-FR,REG (BOOST GLUCOSE CONTROL) 237 ML PO SCH ×3 (08:18→18:00)
[2017-08-22] MEDS: amiodarone 200mg tablet PO SCH ×2 (10:16→20:43)
[2017-08-22] MEDS ORDERED: TRAV5DRO LEFTEYE (16:56)
[2017-08-22] MEDS ORDERED: [UNRECOGNIZED DRUG - OTHER] LEFTEYE SCH (17:02)
[2017-08-22] MEDS ORDERED: BRIMONIDINE LEFTEYE SCH (17:02)
[2017-08-22] MEDS: HYDROcodone/acetaminophen 10/325mg tab PO PRN (20:42)
[2017-08-22] MEDS ORDERED: warfarin 1mg tablet PO ONE (21:00)
[2017-08-23] VITALS (13 sets, daily range): BP systolic 102–166; BP diastolic 60–96
[2017-08-23] MEDS: BRIMONIDINE LEFTEYE SCH ×3 (00:09→16:00)
[2017-08-23] MEDS: [UNRECOGNIZED DRUG - OTHER] LEFTEYE SCH ×3 (00:09→16:00)
[2017-08-23 06:15] LABS: PROTHROMBIN TIME 10.6 SECONDS (9.0-12.0)
[2017-08-23 06:21] LABS: MAGNESIUM 2.1 MG/DL (1.5-2.4); PHOSPHORUS 4.5 MG/DL (2.3-4.5); POTASSIUM 3.8 MMOL/L (3.5-5.1)
[2017-08-23] MEDS: NUT.TX.GLUC.INTOLER,LAC-FR,REG (BOOST GLUCOSE CONTROL) 237 ML PO SCH ×3 (08:00→18:00)
[2017-08-23] MEDS ORDERED: potassium Cl 20 mEq SR tablet PO PRN ×2 (08:05)
[2017-08-23] MEDS ORDERED: magnesium 4gm in 100ml NS 100 ML IV PRN (08:05)
[2017-08-23] MEDS ORDERED: magnesium Cl slow-release 64mg tablet PO PRN (08:05)
[2017-08-23] MEDS ORDERED: potassium Cl 40MEQ/NS 500ml 500 ML IV PRN ×2 (08:05)
[2017-08-23] MEDS ORDERED: magnesium 2GM in 50ml NS 50 ML IV PRN (08:05)
[2017-08-23] MEDS: sennosides 8.6mg tablet PO SCH (08:20)
[2017-08-23] MEDS: atorvastatin 10mg tablet PO SCH (08:21)
[2017-08-23] MEDS: docusate sod 100mg capsule PO SCH ×2 (08:21→20:20)
[2017-08-23] MEDS: verapamil SR 120mg (sust. release) tab PO SCH ×2 (08:21→20:20)
[2017-08-23] MEDS: pantoprazole 40mg Tablet.DR PO SCH (08:21)
[2017-08-23] MEDS: potassium Cl 20 mEq SR tablet PO SCH (08:21)
[2017-08-23] MEDS: amiodarone 200mg tablet PO SCH ×2 (08:21→20:19)
[2017-08-23] MEDS: magnesium Cl slow-release 64mg tablet PO SCH (20:20)
[2017-08-23] MEDS: HYDROcodone/acetaminophen 5mg/325mg tablet PO PRN (20:20)
[2017-08-23] MEDS ORDERED: warfarin 2.5mg tablet PO ONE (21:00)
[2017-08-24] MEDS: [UNRECOGNIZED DRUG - OTHER] LEFTEYE SCH ×2 (00:30→07:30)
[2017-08-24] MEDS: BRIMONIDINE LEFTEYE SCH ×2 (00:30→07:30)
[2017-08-24] MEDS: HYDROcodone/acetaminophen 5mg/325mg tablet PO PRN (00:53)
[2017-08-24 02:00] VITALS: BP 121/57
[2017-08-24 06:17] LABS: BASOPHILS % (AUTO) 0.6 % (0-1); EOSINOPHILS # (AUTO) 0.2 X10'3 (0-0.9); EOSINOPHILS % (AUTO) 3.9 % (0-6); HEMATOCRIT 31.3 % (35.0-45.0); HEMOGLOBIN 10.4 g/dl (12.0-16.0); LYMPHOCYTES # (AUTO) 1.1 X10'3 (1.1-4.8); LYMPHOCYTES % (AUTO) 23.4 % (21-51); MEAN CORPUSCULAR HGB CONC 33.3 % (33.0-36.5); MEAN PLATELET VOLUME 8.9 FL (7.4-10.4); MONOCYTES # (AUTO) 0.5 X10'3 (0-0.9); MONOCYTES % (AUTO) 10.1 % (2-12); PLATELET COUNT 180 X10'3 (140-440); PROTHROMBIN TIME 10.8 SECONDS (9.0-12.0); WHITE BLOOD COUNT 4.8 X10'3 (4.5-11.0)
[2017-08-24 06:23] LABS: ALBUMIN 3.2 G/DL (3.4-5.0); ANION GAP 8 (8-16); BLOOD UREA NITROGEN 8 MG/DL (7-18); BUN/CREATININE RATIO 11.9 (6.6-38.0); CALCIUM 8.6 MG/DL (8.5-10.1); CHLORIDE 104 MMOL/L (99-107); CREATININE 0.67 MG/DL (0.40-0.90); GLUCOSE 91 MG/DL (70-104); MAGNESIUM 2.1 MG/DL (1.5-2.4); POTASSIUM 3.8 MMOL/L (3.5-5.1); SODIUM 141 MMOL/L (135-145); TOTAL CARBON DIOXIDE 28.9 MMOL/L (24-32); eGFR 85 ML/MIN
[2017-08-24] MEDS: magnesium Cl slow-release 64mg tablet PO SCH (06:30)
[2017-08-24 06:38] VITALS: BP 141/70
[2017-08-24] MEDS: docusate sod 100mg capsule PO SCH (07:29)
[2017-08-24] MEDS: amiodarone 200mg tablet PO SCH (07:29)
[2017-08-24] MEDS: pantoprazole 40mg Tablet.DR PO SCH (07:29)
[2017-08-24] MEDS: sennosides 8.6mg tablet PO SCH (07:29)
[2017-08-24] MEDS: verapamil SR 120mg (sust. release) tab PO SCH (07:29)
[2017-08-24] MEDS: atorvastatin 10mg tablet PO SCH (07:29)
[2017-08-24] MEDS: potassium Cl 20 mEq SR tablet PO SCH (07:29)
[2017-08-24] MEDS: NUT.TX.GLUC.INTOLER,LAC-FR,REG (BOOST GLUCOSE CONTROL) 237 ML PO SCH (07:30)
[2017-08-24] MEDS ORDERED: K and/or MAG REPLACEMENT MC SCH (08:00)
[2017-08-24] MEDS ORDERED: HYDR-3972 PO (09:31)
[2017-08-24] MEDS ORDERED: AMIO200T57 PO (09:31)
[2017-08-24] MEDS ORDERED: VERA120T96 PO (09:31)
[2017-08-24] MEDS ORDERED: WARF2TAB PO (09:34)
== END 2017-08-24 10:55 | disposition home or self-care (01) | DRG 217 ==
LOC: SSTAY O 13:51 → PCU 3S 17:50 → CICU 2S 08-17 09:21 → ICU 2S 08-20 09:20 → PCU 3S 08-23 23:15
PROVIDERS: ADMIT Thoracic Surgery (Cardiothoracic Vascular Surgery); ATTEND Thoracic Surgery (Cardiothoracic Vascular Surgery)
PROC: 4A023N7 Measurement of Cardiac Sampling and Pressure, Left Heart, Percutaneous Approach (ICD-10-PCS; 2017-08-15)
PROC: B2111ZZ Fluoroscopy of Multiple Coronary Arteries using Low Osmolar Contrast (ICD-10-PCS; 2017-08-15)
PROC: B2151ZZ Fluoroscopy of Left Heart using Low Osmolar Contrast (ICD-10-PCS; 2017-08-15)
PROC: 03HY32Z Insertion of Monitoring Device into Upper Artery, Percutaneous Approach (ICD-10-PCS; 2017-08-17)
PROC: B246ZZ4 Ultrasonography of Right and Left Heart, Transesophageal (ICD-10-PCS; 2017-08-17)
PROC: 5A1221Z Performance of Cardiac Output, Continuous (ICD-10-PCS; 2017-08-17)
PROC: 05HM33Z Insertion of Infusion Device into Right Internal Jugular Vein, Percutaneous Approach (ICD-10-PCS; 2017-08-17)
PROC: B543ZZA Ultrasonography of Right Jugular Veins, Guidance (ICD-10-PCS; 2017-08-17)
PROC: 02RF08Z Replacement of Aortic Valve with Zooplastic Tissue, Open Approach (ICD-10-PCS; principal; 2017-08-17 06:05)
DX: I35.0 Nonrheumatic aortic (valve) stenosis (principal); I50.32 Chronic diastolic (congestive) heart failure; I48.0 Paroxysmal atrial fibrillation; I11.0 Hypertensive heart disease with heart failure; E78.5 Hyperlipidemia, unspecified; I44.0 Atrioventricular block, first degree; R55 Syncope and collapse; F17.200 Nicotine dependence, unspecified, uncomplicated; J44.9 Chronic obstructive pulmonary disease, unspecified; R00.1 Bradycardia, unspecified; Z98.1 Arthrodesis status; Z90.49 Acquired absence of other specified parts of digestive tract; Z88.6 Allergy status to analgesic agent; Z88.5 Allergy status to narcotic agent; Z88.2 Allergy status to sulfonamides; Z79.01 Long term (current) use of anticoagulants; Z71.6 Tobacco abuse counseling
CPT/HCPCS: 0232T; 93312; 93325; 93458; 36415; 36600; 71045; 71046; 80048; 80053; 81001; 82330; 82435; 82803; 82947; 82948; 83036; 83735; 84100; 84132; 84295; 85018; 85025; 85027; 85347; 85384; 85610; 85730; 86885; 86900; 86901; 86920; 87070; 87088; 88300; 93005; 93880; 93971; 94002; 94668; 94760; 97110; 97116; 97161; 97530; 99152; A4620; A6212; A6213; A6255; A6257; A6402; A6449; A7000; A7048; C1751; C1769; J0282; J0690; J0780; J1644; J1815; J1885; J2001; J2150; J2250; J2270; J2370; J2405; J2704; J2720; J2930; J3010; J3370; J3475; J3480; J7030; J7060; J7120; P9045; P9047; Q0163; Q9967

== ENCOUNTER 2017-08-26 10:11 | Outpatient (CLI) | payer MEDICARE, OTHER ==
[~2017-08-26 10:11] MED LIST changes: +AMIO200T57 PO; +HYDR-3972 PO; +OMEG1CAP PO; +TRAV5DRO LEFTEYE; +VERA120T96 PO; +WARF2TAB PO
[2017-08-26 11:19] LABS: INR 1.5 INR; PROTHROMBIN TIME 14.9 SECONDS (9.0-12.0)
== END 2017-08-26 23:59 | disposition home or self-care (01) ==
LOC: LAB 10:11
PROVIDERS: ATTEND Thoracic Surgery (Cardiothoracic Vascular Surgery)
DX: I25.10 Atherosclerotic heart disease of native coronary artery without angina pectoris (principal); I10 Essential (primary) hypertension
CPT/HCPCS: 36415; 85610

== ENCOUNTER 2021-03-25 14:39 | Emergency (ER) | payer MEDICARE, OTHER ==
[~2021-03-25] VITALS: Ht 172.7 cm; Wt 69.0 kg
[~2021-03-25 14:39] MED LIST changes: -ACET-2119 PO; -AMIO200T57 PO; +AMIO200T61 PO; -ENOX40SY7 SUBCUT; -LOSA1TAB41 PO; +MONT-40 PO; -MONT10TA24 PO; -OMEG-107 PO; +OMEG-220 PO; -OMEG1CAP PO; +OMEG1CAP61 PO; -PANT40TA4 PO; +PANT40TA54 PO; +VERA120T86 PO; -VERA120T96 PO; -VERA180T PO; -WARF-65 PO
[2021-03-25 14:52] VITALS: BP 172/84
[2021-03-25] MEDS ORDERED: acetaminophen 325mg tablet PO ONE (14:55)
[2021-03-25] MEDS ORDERED: BUPIVAcaine/PF 2.5 mg/ml (0.25%) 30ml vial IJ ONE (16:15)
[2021-03-25] MEDS ORDERED: BUPIVAcaine 0.5% inj/PF 30 ml vial IJ ONE (16:15)
== END 2021-03-25 17:24 | disposition home or self-care (01) ==
LOC: ER 14:40
DX: S59.292A Other physeal fracture of lower end of radius, left arm, initial encounter for closed fracture (principal); S59.092A Other physeal fracture of lower end of ulna, left arm, initial encounter for closed fracture; M25.532 Pain in left wrist; I48.91 Unspecified atrial fibrillation; Z98.890 Other specified postprocedural states; Z88.8 Allergy status to other drugs, medicaments and biological substances; Z88.2 Allergy status to sulfonamides; Z88.5 Allergy status to narcotic agent; Z79.899 Other long term (current) drug therapy; W19.XXXA Unspecified fall, initial encounter; Y93.89 Activity, other specified; Y92.89 Other specified places as the place of occurrence of the external cause; Y99.8 Other external cause status
CPT/HCPCS: 29125; 73030; 73110; 99284